=== PATIENT | male | born 1995 | race Two or more races ===

== ENCOUNTER 2024-09-24 13:20 | Outpatient (CLI) | payer OTHER, SELFPAY | END 2024-09-24 13:21 | disposition home or self-care (01) | PROVIDERS: PCP Family Medicine; Visit Provider Family Medicine | DX: Z00.00 Encounter for general adult medical examination without abnormal findings (principal); F14.91 Cocaine use, unspecified, in remission; F10.20 Alcohol dependence, uncomplicated; R53.83 Other fatigue; Z83.3 Family history of diabetes mellitus; Z13.0 Encounter for screening for diseases of the blood and blood-forming organs and certain disorders involving the immune mechanism | CPT/HCPCS: 80053; 80061; 80074; 82728; 82977; 84443 ==